=== PATIENT | female | born 1950 | race Caucasian/White ===

== ENCOUNTER → 2024-12-08 09:19 | Outpatient (REF) | payer MEDICARE, OTHER, SELFPAY | LOC: HWWDC 09:19 | PROVIDERS: ATTENDING PHYSICIAN Obstetrics & Gynecology Gynecology; FAMILY PHYSICIAN Family Medicine | DX: Z12.31 Encounter for screening mammogram for malignant neoplasm of breast (principal) | CPT/HCPCS: 77063; 77067 ==

== ENCOUNTER → 2024-12-14 13:30 | Outpatient (REF) | payer MEDICARE, OTHER, SELFPAY | LOC: HWRAD 13:30 | PROVIDERS: ATTENDING PHYSICIAN Obstetrics & Gynecology Gynecology; FAMILY PHYSICIAN Family Medicine | DX: R10.2 Pelvic and perineal pain (principal) | CPT/HCPCS: 76830; 76856 ==